=== PATIENT | male | born 1995 | race Caucasian/White ===

== ENCOUNTER 2017-12-02 12:48 | Emergency (ER) | payer OTHER ==
[2017-12-02 13:19] VITALS: BP 130/68; PULSE 96; TEMP 98.2
--- NOTE | 2017-12-02 15:12 | EDPHY ---
H & P Time Seen by Provider: 12/02/17 14:42 HPI/ROS: CHIEF COMPLAINT: left thumb injury HISTORY OF PRESENT ILLNESS: 22-year-old male presents to the emergency department skin avulsion to the left thumb. The patient was at home cutting vegetables and accidentally cut his left thumb with a knife. The incident happened 2 hr prior to arrival. Denies any other trauma or injury. He is right -hand dominant. He is unsure of her last tetanus shot. ROS: Denies numbness or tingling in his fingers, retained foreign body. Past Medical/Surgical History: Negative Social History: Student Smoking Status: Never smoked Physical Exam: On examination, the patient has a small less than 1 cm superficial flap laceration to the distal, palmar aspect of the left thumb. No nail avulsion noted. It does not extend into the D IP joint. No palpable bony tenderness. No active bleeding noted. The skin flap is still just barely attached and appears clean but a bit dusky. No evidence of retained foreign body. Constitutional: Initial Vital Signs Temperature (C) 36.8 C 12/02/17 13:17 Heart Rate 96 12/02/17 13:17 Respiratory Rate 96 H 12/02/17 13:17 Blood Pressure 130/68 H 12/02/17 13:17 O2 Delivery Mode Room Air Allergies/Adverse Reactions: No Known Allergies Allergy (Unverified 12/02/17 13:20) MDM/Departure - [facility] ED Course/Re-evaluation: 22-year-old male presents to the emergency department with skin avulsion to the left thumb. I do not think sutures are indicated. Patient's tetanus shot was updated. His wound was cleansed and dressed. - Depart Disposition: Home, Routine, Self-Care Clinical Impression: superficial skin avulsion left thumb Condition: Good Instructions: Skin Avulsion (ED), Acute Wounds (ED) Additional Instructions: Your given a tetanus shot today in the emergency department. Please document this at home for your records. Return if you notice any signs or symptoms of infection such as redness, swelling, increased pain, fever, purulent drainage. Referrals: Adryan Clements [Doctor of Osteopathy] - As per Instructions (primary care provider general manager road production)
[2017-12-02] MEDS ORDERED: TDAP ADULT 0.5 ML INJ (BOOSTRIX) IM ONE (15:19)
[2017-12-02 15:56] VITALS: RESP 16; O2SAT 96
== END 2017-12-02 15:59 | disposition home or self-care (01) ==
DX: S61.002A Unspecified open wound of left thumb without damage to nail, initial encounter (principal); Z23 Encounter for immunization; W26.0XXA Contact with knife, initial encounter; Y92.009 Unspecified place in unspecified non-institutional (private) residence as the place of occurrence of the external cause; Y99.8 Other external cause status; Y93.G1 Activity, food preparation and clean up